=== PATIENT | female | born 2000 | race Native Hawaiian/Other Pacific Islander ===

== ENCOUNTER 2021-01-04 16:43 | Outpatient (CLI) | payer OTHER ==
[~2021-01-04 16:43] MED LIST: AMOX875T8 PO; CLINDAMYCIN150 MG PO; NYST100048 PO; PROM25TA52 PO
== END 2021-01-04 21:14 | disposition home or self-care (01) ==
LOC: LABW 16:43
PROVIDERS: ATTEND Family Medicine
DX: R10.9 Unspecified abdominal pain (principal); R30.0 Dysuria; Z87.440 Personal history of urinary (tract) infections
CPT/HCPCS: 81000; 87086; 87088

== ENCOUNTER 2021-01-07 13:29 | Outpatient (CLI) | payer OTHER | END 2021-01-07 21:22 | disposition home or self-care (01) | LOC: LABW 13:29 | PROVIDERS: ATTEND Family Medicine | DX: Z20.2 Contact with and (suspected) exposure to infections with a predominantly sexual mode of transmission (principal); R10.9 Unspecified abdominal pain; M54.9 Dorsalgia, unspecified | CPT/HCPCS: 87490; 87590 ==

== ENCOUNTER 2021-01-12 13:42 | Outpatient (CLI) | payer OTHER | END 2021-01-12 21:30 | disposition home or self-care (01) | LOC: LABW 13:42 | PROVIDERS: ATTEND Family Medicine | DX: Z20.2 Contact with and (suspected) exposure to infections with a predominantly sexual mode of transmission (principal); N39.0 Urinary tract infection, site not specified; R30.0 Dysuria | CPT/HCPCS: 81000 ==

== ENCOUNTER → 2023-02-06 | Outpatient (CLI) | payer OTHER ==
[2023-02-06 17:17] LABS: PLATELET COUNT 249 K/uL (152-353)
[2023-02-06 17:35] LABS: POTASSIUM 3.8 mmol/L (3.6-5.2)
== END ==
LOC: RAD 17:00
PROVIDERS: ATTEND Family Medicine
DX: R10.9 Unspecified abdominal pain (principal); R94.5 Abnormal results of liver function studies; Z68.42 Body mass index [BMI] 45.0-49.9, adult; E78.00 Pure hypercholesterolemia, unspecified; R73.9 Hyperglycemia, unspecified; M54.59 Other low back pain
CPT/HCPCS: 36415; 80053; 80061; 81002; 82150; 83036; 83690; 84439; 84443; 85027